=== PATIENT | male | born 1945 ===

== ENCOUNTER 2016-11-23 08:01 | Day surgery (SDC) | payer OTHER ==
[2016-11-23 08:25] VITALS: BMI 32.3
[2016-11-23] MEDS ORDERED: Lactated Ringer's 500 ML IV ONE ×2 (10:47)
[2016-11-23] MEDS ORDERED: Propofol 10 mg/ml Inj (20 ML) ONE ×2 (10:49→11:08)
[2016-11-23 11:43] VITALS: TEMP 97.4
[2016-11-23 12:51] VITALS: BP 154/85; PULSE 64; RESP 18; O2SAT 99
== END 2016-11-23 12:50 | disposition home or self-care (01) ==
LOC: C.ENDO 08:01
PROVIDERS: ATTEND Internal Medicine
DX: K22.70 Barrett's esophagus without dysplasia (principal); K29.70 Gastritis, unspecified, without bleeding; K44.9 Diaphragmatic hernia without obstruction or gangrene
CPT/HCPCS: 43204; J2001; J2704; J3010; J7120

== ENCOUNTER 2018-05-28 08:17 | Outpatient (CLI) | payer MEDICARE | END 2018-05-28 08:18 | disposition home or self-care (01) | LOC: C.LAB 08:17 | DX: E23.6 Other disorders of pituitary gland (principal); E03.9 Hypothyroidism, unspecified; E78.2 Mixed hyperlipidemia; E55.9 Vitamin D deficiency, unspecified ==

== ENCOUNTER → 2018-06-24 | Outpatient (CLI) | payer MEDICARE | LOC: C.MRIC 12:07 ==